=== PATIENT | male | born 2000 | race Caucasian/White ===

== ENCOUNTER 2020-01-18 04:41 | Emergency (ER) | payer MEDICAID ==
[~2020-01-18] VITALS: Ht 185.4 cm; Wt 78.4 kg
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
[2020-01-18 06:20] VITALS: BP 138/72
== END 2020-01-18 06:25 | disposition home or self-care (01) ==
LOC: M ED 04:41
DX: S06.0X0A Concussion without loss of consciousness, initial encounter (principal); Y92.9 Unspecified place or not applicable; Y93.9 Activity, unspecified; Y99.9 Unspecified external cause status

== ENCOUNTER 2024-11-04 20:19 | Emergency (ER) | payer OTHER, SELFPAY ==
[~2024-11-04] VITALS: Ht 188 cm; Wt 89.1 kg
[2024-11-04] MEDS: OLOPATADINE 0.1% OPHTH SOL 5ML OU ONE (22:10)
[2024-11-04] MEDS: CETIRIZINE 10 MG TAB PO ONE (22:40)
[2024-11-04 22:46] VITALS: BP 141/103; TEMP 99; O2SAT 98
== END 2024-11-04 22:50 | disposition home or self-care (01) ==
LOC: M ED 20:19
DX: H10.33 Unspecified acute conjunctivitis, bilateral (principal); F17.290 Nicotine dependence, other tobacco product, uncomplicated; F10.10 Alcohol abuse, uncomplicated